=== PATIENT | female | born 1990 ===

== ENCOUNTER 2018-12-13 14:06 | Emergency (ER) | payer SELFPAY ==
[~2018-12-13] VITALS: Ht 167.6 cm; Wt 148.8 kg
[2018-12-13 14:26] VITALS: BP 124/61
[2018-12-13] MEDS ORDERED: ACETAMINOPHEN 500 MG TABLET ONE (15:48)
[2018-12-13] MEDS ORDERED: KETOROLAC 30 MG/1 ML ONE (15:48)
[2018-12-13] MEDS ORDERED: CYCLOBENZAPRINE 10 MG TABLET ONE (15:48)
[2018-12-13] MEDS ORDERED: PLEASE ENTER ALLERGIES MC SCH (16:00)
[2018-12-13] MEDS ORDERED: CYCLOBENZAPRINE 10 MG TABLET PO ONE (16:00)
[2018-12-13] MEDS ORDERED: ACETAMINOPHEN 500 MG TABLET PO ONE (16:00)
[2018-12-13] MEDS ORDERED: KETOROLAC 30 MG/1 ML IM ONE (16:00)
--- NOTE | 2018-12-13 16:51 | NUR ---
FAMILY TO TRANSPORT PT HOME
--- NOTE | 2018-12-13 16:51 | NUR ---
DC EDUCATION PROVIDED, PT DEMONSTRATES UNDERSTANDING. PT AMBULATED STEADILY TO DC WITH RN AND FAMILY
== END 2018-12-13 17:55 | disposition home or self-care (01) ==
LOC: ED 17:00
DX: S16.1XXA Strain of muscle, fascia and tendon at neck level, initial encounter (principal); V49.09XA Driver injured in collision with other motor vehicles in nontraffic accident, initial encounter; Y93.89 Activity, other specified; Y92.89 Other specified places as the place of occurrence of the external cause; Y99.8 Other external cause status
CPT/HCPCS: 72125; 96372; 99284; J1885

== ENCOUNTER 2020-05-19 10:36 | Inpatient (IN) | payer OTHER ==
[~2020-05-19] VITALS: Ht 167.6 cm; Wt 150.0 kg
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
[2020-05-19] MEDS ORDERED: SODIUM CHLORIDE FLUSH 10ML SYR IVF ONE (12:00)
[2020-05-19] MEDS ORDERED: methylPREDNISolone SOD SUCC 125 MG/2 ML IVPush ONE (12:00)
[2020-05-19] MEDS ORDERED: ONDANSETRON 2MG/ML, 2ML IVPush ONE (12:00)
[2020-05-19] MEDS ORDERED: ONDANSETRON 2MG/ML, 2ML ONE ×2 (12:10→21:03)
[2020-05-19] MEDS ORDERED: methylPREDNISolone SOD SUCC 125 MG/2 ML ONE (12:10)
[2020-05-19] MEDS ORDERED: MORPHINE SULFATE 4 MG/ML, 1ML ONE ×3 (12:10→16:34)
[2020-05-19 12:12] LABS: BASOPHILS % (AUTO) 1 % (0-1); EOSINOPHILS % (AUTO) 0 % (1-7); LYMPHOCYTES % (AUTO) 16 % (22-44); MEAN CORPUSCULAR HEMOGLOBIN 27.2 pg (27.0-34.8); MEAN CORPUSCULAR HGB CONC 32.8 g/dL (32.4-35.8); MEAN PLATELET VOLUME 8.4 fL (7.4-10.4); MONOCYTES % (AUTO) 7 % (2-9); NEUTROPHILS % (AUTO) 76 % (42-75); PLATELET COUNT 356 x10^3/uL (130-400); RED BLOOD COUNT 4.61 x10^6/uL (3.82-5.3); RED CELL DISTRIBUTION WIDTH 14.2 % (9.6-15.2)
[2020-05-19] MEDS: MORPHINE SULFATE 4 MG/ML, 1ML IVPush PRN ×2 (12:12→13:09)
[2020-05-19 12:13] LABS: MD NO
--- NOTE | 2020-05-19 12:29 | NUR ---
MEDICATED FOR PAIN, PLAN FOR CT
[2020-05-19] MEDS ORDERED: OMNIPAQUE 350 MG/ML, 75ML BOTTLE ONE (12:45)
--- NOTE | 2020-05-19 13:14 | NUR ---
PT BACK FROM CT. MEDICATED FOR PAIN. VSS. CALL LIGHT IN REACH
[2020-05-19 13:33] LABS: ANION GAP 7 mmol/L (5-15); CALCIUM 8.8 mg/dL (8.5-10.1); CHLORIDE 105 mmol/L (98-107)
--- NOTE | 2020-05-19 14:06 | NUR ---
BREAK RN: PT ADVISED SHE WILL BE GOING TO SURGERY. RATES PAIN AT 6/10. REQUESTING COTTON BALL FOR EAR PAIN. VSS AFEBRILE
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
[2020-05-19] MEDS ORDERED: AMPICILLIN/SULBACTAM 3 GM in SODIUM CHLORIDE 0.9% 100 ML IV ONE (16:30)
--- NOTE | 2020-05-19 16:43 | NUR ---
MEDICATED FOR PAIN, UNASYN INFUSING. SHM AT BEDSIDE
--- NOTE | 2020-05-19 16:51 | NUR ---
REPORT TO AMY. LANCE READY FOR TRANSFER
[2020-05-19] MEDS ORDERED: ONDANSETRON 2MG/ML, 2ML IVPush PRN ×3 (17:00→22:00)
[2020-05-19] MEDS ORDERED: DOCUSATE 100 MG CAPSULE PO PRN (17:00)
[2020-05-19] MEDS ORDERED: ACETAMINOPHEN 325 MG TABLET PO PRN ×3 (17:00→22:00)
[2020-05-19] MEDS ORDERED: ENALAPRILAT 1.25 MG/ML, 2ML IVPush PRN (17:00)
[2020-05-19] MEDS ORDERED: BISACODYL 10 MG SUPP PR PRN (17:00)
[2020-05-19] MEDS: SODIUM CHLORIDE 0.9% 1,000 ML IV SCH (17:00)
[2020-05-19] MEDS ORDERED: MORPHINE SULFATE 4 MG/ML, 1ML IVPush PRN (17:00)
[2020-05-19] MEDS ORDERED: LABETALOL 5MG/ML, 20ML IVPush PRN (17:00)
[2020-05-19] MEDS ORDERED: IBUPROFEN 600 MG TABLET PO PRN (17:00)
[2020-05-19] MEDS ORDERED: POLYETHYLENE GLYCOL 17 GM PACKET PO PRN (17:00)
[2020-05-19] MEDS ORDERED: ONDANSETRON ODT 4 MG PO PRN (17:00)
[2020-05-19] MEDS ORDERED: morphine SULFATE 10 MG/ML, 1ML IVPush PRN (17:00)
--- NOTE | 2020-05-19 17:36 | NUR ---
RAPID COVID SENT TO LAB. UA SENT TO LAB.
[2020-05-19 18:07] LABS: HCG UR SG > 1.045 (1.003-1.030)
[2020-05-19 18:35] VITALS: BP 109/59
[2020-05-19] MEDS ORDERED: FENTANYL PF 250 MCG/5ML ONE (19:47)
[2020-05-19] MEDS ORDERED: MIDAZOLAM 1 MG/ML, 2ML ONE (19:47)
[2020-05-19] MEDS ORDERED: OXYcodone 5 MG/5 ML ORAL.SOL UDC PO PRN ×2 (20:00→22:00)
[2020-05-19] MEDS ORDERED: MEPERIDINE/PF 25MG/0.5ML IVPush PRN ×2 (20:00→22:00)
[2020-05-19] MEDS ORDERED: hydrALAzine 20 MG/ML, 1ML IV PRN ×2 (20:00→22:00)
[2020-05-19] MEDS ORDERED: PROMETHAZINE 25 MG/ML, 1ML IVPush PRN ×2 (20:00→22:00)
[2020-05-19] MEDS ORDERED: LABETALOL 5MG/ML, 20ML IV PRN ×2 (20:00→22:00)
[2020-05-19] MEDS ORDERED: FENTANYL PF 100 MCG/2ML IV PRN (20:00)
[2020-05-19] MEDS ORDERED: HYDROmorphone 1 MG/ML, 1ML INJ IVPush PRN ×2 (20:00→22:00)
[2020-05-19] MEDS ORDERED: LIDOCAINE/PF 1%-EPI 1:200K, 30 ML ONE (20:14)
[2020-05-19] MEDS ORDERED: OXYMETAZOLINE NASAL SPRAY 0.05%,30ML ONE (20:25)
[2020-05-19] MEDS ORDERED: PROPOFOL 10 MG/ML, 20ML ONE (21:03)
[2020-05-19] MEDS ORDERED: DEXAMETHASONE 4 MG/ML, 1ML ONE (21:03)
[2020-05-19] MEDS ORDERED: SUCCINYLCHOLINE 20 MG/ML, 10ML ONE (21:03)
[2020-05-19] MEDS ORDERED: ROCURONIUM 10MG/ML,5ML ONE (21:03)
[2020-05-19] MEDS ORDERED: LIDOCAINE 1%-EPI 1:100K, 30ML INFIL ONE (21:07)
[2020-05-19] MEDS ORDERED: KETOROLAC 30 MG/1 ML ONE (21:07)
[2020-05-19] MEDS ORDERED: FENTANYL PF 100 MCG/2ML ONE ×2 (21:31→21:52)
[2020-05-19] MEDS: FENTANYL PF 100 MCG/2ML IV PRN ×3 (21:35→21:53)
[2020-05-19] MEDS ORDERED: ACETAMINOPHEN 650 MG/20.3 ML UDC ONE (21:46)
[2020-05-19] MEDS ORDERED: OXYcodone 5 MG/5 ML ORAL.SOL UDC ONE (21:46)
[2020-05-19] MEDS ORDERED: MIDAZOLAM 1 MG/ML, 2ML IV PRN (22:00)
[2020-05-19 22:30] VITALS: BP 109/61
[2020-05-19] MEDS: AMPICILLIN/SULBACTAM 3 GM in SODIUM CHLORIDE 0.9% 100 ML IV SCH (23:54)
[2020-05-20 00:48] VITALS: BP 114/60
[2020-05-20] MEDS: SODIUM CHLORIDE 0.9% 1,000 ML IV SCH ×3 (02:46→19:47)
[2020-05-20 04:00] VITALS: BP 114/77
[2020-05-20] MEDS: AMPICILLIN/SULBACTAM 3 GM in SODIUM CHLORIDE 0.9% 100 ML IV SCH ×4 (05:24→23:01)
[2020-05-20 05:56] LABS: ANION GAP 6 mmol/L (5-15); CALCIUM 8.9 mg/dL (8.5-10.1); CHLORIDE 104 mmol/L (98-107); CREATININE 0.63 mg/dL (0.55-1.02)
[2020-05-20 05:59] LABS: BASOPHILS % (AUTO) 0 % (0-1); EOSINOPHILS % (AUTO) 0 % (1-7); LYMPHOCYTES % (AUTO) 5 % (22-44); MEAN CORPUSCULAR HEMOGLOBIN 27.3 pg (27.0-34.8); MEAN CORPUSCULAR HGB CONC 32.7 g/dL (32.4-35.8); MEAN PLATELET VOLUME 9.1 fL (7.4-10.4); MONOCYTES % (AUTO) 3 % (2-9); NEUTROPHILS % (AUTO) 93 % (42-75); PLATELET COUNT 361 x10^3/uL (130-400); RED BLOOD COUNT 4.17 x10^6/uL (3.82-5.3); RED CELL DISTRIBUTION WIDTH 14.4 % (9.6-15.2)
[2020-05-20 06:32] LABS: MD SCAN
[2020-05-20 07:53] VITALS: BP 109/76
[2020-05-20] MEDS: HYDROcodone/APAP 5/325 TABLET PO PRN ×3 (09:21→21:23)
[2020-05-20 14:47] VITALS: BP 101/68
[2020-05-20 19:41] VITALS: BP 122/82
[2020-05-21 01:01] VITALS: BP 126/87
[2020-05-21] MEDS: SODIUM CHLORIDE 0.9% 1,000 ML IV SCH (03:00)
[2020-05-21] MEDS: AMPICILLIN/SULBACTAM 3 GM in SODIUM CHLORIDE 0.9% 100 ML IV SCH ×4 (05:43→23:54)
[2020-05-21] MEDS: HYDROcodone/APAP 5/325 TABLET PO PRN (06:21)
[2020-05-21 08:05] VITALS: BP 109/78
[2020-05-21] MEDS ORDERED: MAALOX/HYOSCYAMINE/LIDOCAINE 45 ML BTL PO PRN (09:00)
[2020-05-21] MEDS ORDERED: KETOROLAC 30 MG/1 ML IVPush PRN (09:00)
[2020-05-21 13:45] VITALS: BP 108/65
[2020-05-21 18:52] VITALS: BP 102/66
[2020-05-22 01:24] VITALS: BP 102/64
[2020-05-22] MEDS: AMPICILLIN/SULBACTAM 3 GM in SODIUM CHLORIDE 0.9% 100 ML IV SCH ×2 (05:28→11:14)
[2020-05-22 06:40] VITALS: BP 95/66
[2020-05-22 08:37] LABS: BASOPHILS % (AUTO) 1 % (0-1); EOSINOPHILS % (AUTO) 1 % (1-7); LYMPHOCYTES % (AUTO) 29 % (22-44); MEAN CORPUSCULAR HEMOGLOBIN 26.9 pg (27.0-34.8); MEAN CORPUSCULAR HGB CONC 32.1 g/dL (32.4-35.8); MEAN PLATELET VOLUME 8.5 fL (7.4-10.4); MONOCYTES % (AUTO) 6 % (2-9); NEUTROPHILS % (AUTO) 64 % (42-75); PLATELET COUNT 371 x10^3/uL (130-400); RED BLOOD COUNT 4.34 x10^6/uL (3.82-5.3); RED CELL DISTRIBUTION WIDTH 14.6 % (9.6-15.2)
[2020-05-22 08:46] LABS: MD NO
[2020-05-22] MEDS ORDERED: IBUP-1222 PO ×2 (11:35→11:58)
[2020-05-22] MEDS ORDERED: LACT1CAP35 PO ×4 (11:35→11:58)
[2020-05-22] MEDS ORDERED: HYDR-1067 PO ×2 (11:35→11:58)
[2020-05-22] MEDS ORDERED: AMOX1TAB64 PO ×4 (11:35→11:58)
[2020-05-22 13:35] VITALS: BP 102/64
== END 2020-05-22 13:40 | disposition home or self-care (01) | DRG 137 ==
LOC: ED 15:15 → EDIP 16:55 → 4NE 18:06 → DCLOUNGE 05-22 13:36
PROVIDERS: ADMIT Family Medicine; ATTEND Family Medicine
PROC: 0ND Head and Facial Bones, Extraction (ICD-10-PCS; 2020-05-19)
PROC: 0J910ZZ Drainage of Face Subcutaneous Tissue and Fascia, Open Approach (ICD-10-PCS; principal; 2020-05-19 20:00)
DX: K12.2 Cellulitis and abscess of mouth (principal); Z68.43 Body mass index [BMI] 50.0-59.9, adult; E66.01 Morbid (severe) obesity due to excess calories; D72.829 Elevated white blood cell count, unspecified; Z20.822 Contact with and (suspected) exposure to COVID-19; K04.7 Periapical abscess without sinus; R11.0 Nausea
CPT/HCPCS: 36415; 70487; 80048; 81025; 83036; 83880; 85025; 87070; 87075; 87147; 87205; 87635; 96374; G0378; J0295; J1100; J1885; J2250; J2405; J2704; J3010; Q9967; J0330; J2270; J2930; J7030